=== PATIENT | female | born 2000 | race African-American/Black ===

== ENCOUNTER 2018-04-10 21:15 | Emergency (ER) | payer OTHER, SELFPAY ==
[2018-04-10 21:39] LABS: Bilirubin Negative (Negative); Blood, Urine Negative (Negative); Clarity Clear (Clear); Glucose, Urine (Dipstick) Negative (Negative); Leukocyte Negative (Negative); Nitrite Negative (Negative); Protein, Urine (Dipstick) Negative (Neg-Trace); Urobilinogen 0.2 mg/dL (0.2-1.0); pH, Urine 5.5 (5.0-9.0)
[2018-04-10 21:40] LABS: Pregnancy Test - Urine (BHCG) Negative (Negative); Pregu Control Background? CLEAR/WHITE (CLR/WHITE); Pregu Control Bar Appear? YES (CONTROL BAR)
== END 2018-04-10 21:57 | disposition home or self-care (01) ==
LOC: MADERS 21:15
DX: R10.30 Lower abdominal pain, unspecified (principal); J45.909 Unspecified asthma, uncomplicated; F32.9 Major depressive disorder, single episode, unspecified
CPT/HCPCS: 81003; 81025; 99284

== ENCOUNTER 2018-11-26 18:34 | Emergency (ER) | payer SELFPAY ==
[2018-11-26 19:55] LABS: Eosinophils 1 % (0-10); Hemoglobin 10.9 g/dL (12.0-16.0); Hypochromia MODERATE=16-30 cells (100X) (0-5/hpf); Lymphocytes 11 % (28-48); MDiff Complete? YES; Mean Corpuscular HGB CONC 30.4 g/dL (32.0-36.0); Mean Corpuscular Hemoglobin 23.6 pg (25.0-35.0); Mean Corpuscular Volume 77.7 fL (78.0-98.0); Mean Platelet Volume 6.5 fL (7.4-10.4); Monocytes 6 % (0-4); Neutrophil 78 % (31-61); Platelet Count 337 thou/uL (130-400); Platelet Morphology Comment Appears Adequate; RBC Distribution Width 14.7 % (11.5-14.5); RBC Morphology Abnormal; Reactive Lymphocytes 4 % (0-10); Red Blood Cell (RBC) Count 4.63 mill/uL (4.00-5.20); White Blood Cell (WBC) Count 8.3 thou/uL (4.8-10.8)
[2018-11-26 19:57] LABS: Anion Gap 14 mmol/L (10-20); BUN (Urea Nitrogen) 17 mg/dL (7.0-18.7); Calc. Creatinine Clearance 0 mL/min (70-130); Carbon Dioxide 23 mmol/L (22-29); Chloride 106 mmol/L (98-107); Estimated GFR-MDRD Greater than 90; Glucose 83 mg/dL (70-105); Sodium 139 mmol/L (136-145)
== END 2018-11-26 20:33 | disposition left against medical advice (07) ==
LOC: MADERS 18:34
DX: R55 Syncope and collapse (principal); J45.909 Unspecified asthma, uncomplicated
CPT/HCPCS: 80048; 83735; 84484; 85025; 93005

== ENCOUNTER 2019-02-15 13:32 | Emergency (ER) | payer SELFPAY ==
--- NOTE | 2019-02-15 14:08 | RAD ---
Radiograph left great toe 3 views: HISTORY: 18-year-old female status post acute traumatic injury. FINDINGS: There is no fracture, dislocation, or any other osseous abnormality. IMPRESSION: Normal
== END 2019-02-15 14:10 | disposition home or self-care (01) ==
LOC: MADERS 13:32
DX: S90.112A Contusion of left great toe without damage to nail, initial encounter (principal); W22.8XXA Striking against or struck by other objects, initial encounter

== ENCOUNTER 2019-03-09 15:40 | Emergency (ER) | payer SELFPAY ==
[2019-03-09] MEDS ORDERED: Ibuprofen 600 MG TAB ONE (16:20)
[2019-03-09] MEDS ORDERED: predniSONE 20 MG TAB ONE (16:21)
[2019-03-09] MEDS ORDERED: Metoclopramide HCl 10 MG/2 ML VIAL ONE (16:21)
== END 2019-03-09 17:08 | disposition home or self-care (01) ==
LOC: MADERS 15:40
DX: J02.9 Acute pharyngitis, unspecified (principal); R51 Headache
CPT/HCPCS: 87081; 87430; 96372; 99284; J2765; J7512

== ENCOUNTER 2019-05-02 12:19 | Emergency (ER) | payer SELFPAY ==
[2019-05-02] MEDS ORDERED: Ibuprofen 600 MG TAB ONE (13:11)
--- NOTE | 2019-05-02 13:20 | RAD ---
XR Foot Lt 3 View STANDARD: 05/02/2019 12:51 PM CLINICAL INDICATION: Injury COMPARISON: None. FINDINGS: Fracture:No fracture. Arthropathy:None of significance. Incidental findings:None of significance. IMPRESSION: 1. No acute osseous abnormality.
== END 2019-05-02 13:30 | disposition home or self-care (01) ==
LOC: MADERS 12:19
DX: S90.112A Contusion of left great toe without damage to nail, initial encounter (principal); W22.8XXA Striking against or struck by other objects, initial encounter

== ENCOUNTER 2019-08-17 19:06 | Emergency (ER) | payer SELFPAY ==
[2019-08-17] MEDS ORDERED: traZODone HCl 50 MG TAB ONE (19:39)
[2019-08-17] MEDS ORDERED: Dexamethasone 4 MG TAB ONE (19:39)
== END 2019-08-17 19:58 | disposition home or self-care (01) ==
LOC: MADERS 19:06
DX: J02.9 Acute pharyngitis, unspecified (principal)
CPT/HCPCS: 99282; J8540

== ENCOUNTER 2020-10-27 19:34 | Emergency (ER) | payer OTHER | END 2020-10-27 20:42 | disposition left against medical advice (07) | LOC: MADERS 19:34 | DX: Z53.21 Procedure and treatment not carried out due to patient leaving prior to being seen by health care provider (principal) ==

== ENCOUNTER 2022-01-18 10:52 | Emergency (ER) | payer OTHER | END 2022-01-18 12:05 | disposition home or self-care (01) | LOC: MADERS 10:52 | DX: S16.1XXA Strain of muscle, fascia and tendon at neck level, initial encounter (principal); S50.812A Abrasion of left forearm, initial encounter; S50.811A Abrasion of right forearm, initial encounter; S60.812A Abrasion of left wrist, initial encounter; S60.811A Abrasion of right wrist, initial encounter; S80.812A Abrasion, left lower leg, initial encounter; S80.811A Abrasion, right lower leg, initial encounter; V48.0XXA Car driver injured in noncollision transport accident in nontraffic accident, initial encounter; W22.11XA Striking against or struck by driver side automobile airbag, initial encounter; Y92.410 Unspecified street and highway as the place of occurrence of the external cause | CPT/HCPCS: 99283 ==

== ENCOUNTER 2022-05-07 14:12 | Emergency (ER) | payer OTHER | END 2022-05-07 16:17 | disposition home or self-care (01) | LOC: MADERS 14:12 | DX: J30.2 Other seasonal allergic rhinitis (principal); H10.13 Acute atopic conjunctivitis, bilateral | CPT/HCPCS: 99282 ==

== ENCOUNTER 2022-12-10 16:14 | Emergency (ER) | payer OTHER ==
[2022-12-10] MEDS ORDERED: Ibuprofen 800 MG TAB ONE (16:43)
== END 2022-12-10 16:53 | disposition home or self-care (01) ==
LOC: MADERS 16:14
DX: J32.9 Chronic sinusitis, unspecified (principal)
CPT/HCPCS: 99283